=== PATIENT | female | born 1930 | race Caucasian/White ===

== ENCOUNTER 2017-03-22 07:44 | Day surgery (SDC) | payer BC ==
[2017-03-21 11:46] VITALS: BMI 20.7
[2017-03-22] MEDS ORDERED: TROPICAMIDE 1% OPHTH SOLN 15 ML BOTTLE OS SCH (08:00)
[2017-03-22] MEDS ORDERED: GENTAMICIN SULFATE 0.3% OPHTHALMIC (EYE DROPS) 5ML BOTTLE OS SCH (08:00)
[2017-03-22] MEDS ORDERED: PHENYLEPHRINE 2.5% OPHTH SOLN 15 ML BOTTLE OS SCH (08:00)
[2017-03-22] MEDS ORDERED: FLURBIPROFEN 0.03% OPHTH SOLN 2.5 ML BOTTLE OS SCH (08:00)
[2017-03-22] MEDS ORDERED: CYCLOPENTOLATE HCL 1% OPHTH SOLN 2 ML BOTTLE OS SCH (08:00)
[2017-03-22] MEDS: PHENYLEPHRINE 2.5% OPHTH SOLN 15 ML BOTTLE ONE ×5 (08:20→08:40)
[2017-03-22] MEDS: GENTAMICIN SULFATE 0.3% OPHTHALMIC (EYE DROPS) 5ML BOTTLE ONE ×5 (08:20→08:40)
[2017-03-22] MEDS: TROPICAMIDE 1% OPHTH SOLN 15 ML BOTTLE ONE ×5 (08:20→08:40)
[2017-03-22] MEDS: CYCLOPENTOLATE HCL 1% OPHTH SOLN 2 ML BOTTLE ONE ×4 (08:20→08:35)
[2017-03-22] MEDS: FLURBIPROFEN 0.03% OPHTH SOLN 2.5 ML BOTTLE ONE ×5 (08:20→08:40)
[2017-03-22] MEDS ORDERED: MIDAZOLAM HCL 2 MG/2 ML SINGLE DOSE VIAL ONE (09:42)
[2017-03-22] MEDS: ACETAMINOPHEN 325 MG TABLET (FP) PO PRN ×2 (10:38→10:42)
[2017-03-22 14:18] VITALS: TEMP 98.7
[2017-03-22 14:23] VITALS: BP 136/73; PULSE 74
--- NOTE | 2017-03-22 16:27 | OP ---
DATE OF OPERATION: 03/22/2017 PREOPERATIVE DIAGNOSIS: Cataract, left eye. POSTOPERATIVE DIAGNOSIS: Cataract, left eye. PROCEDURE: Cataract extraction via phacoemulsification with insertion of posterior chamber lens implant, left eye. SURGEON: Kishan Schafer MD INVESTMENT DIRECTOR: Danita Siddiqi MD ANESTHESIA: Regional with sedation. COMPLICATIONS: None. SPECIMENS: None. ESTIMATED BLOOD LOSS: Less than 1 mL. DESCRIPTION OF PROCEDURE: The patient was identified in the holding area. After all risks, benefits, and alternatives were explained to the patient, informed consent was obtained. The left eye was marked with a marking pen. Patient then entered the operating room on an eye stretcher. After a formal timeout was performed, a 3-mL injection of equal parts 2% lidocaine with epinephrine and 0.5% Marcaine was given around the left eye. The patient was then prepped and draped in usual sterile fashion. Eyelid speculum was placed onto the eyelids of the left eye. A 15-degree blade was then used to create an inferotemporal paracentesis incision. Viscoelastic was then injected into the anterior chamber. A 2.4-mm keratome blade was then used to make a superotemporal incision. A bent cystotome and Utrata forceps were then used to create a 360-degree, continuous curvilinear capsulorrhexis. Hydrodissection was performed using balanced saline solution on a cannula. Phacoemulsification was introduced to disassemble and remove the nucleus in its entirety. Irrigation/aspiration was then used to remove any remaining cortical material from the eye. The capsular bag was then refilled using Viscoelastic. An Vinod model SN60WF with a power of 17.0 diopters, serial number [id number], was inspected and found to be defect free and injected into the capsular bag. Irrigation/aspiration was then used to remove any remaining viscoelastic from the eye. Intracameral injections of Miochol and Miostat were then given to the anterior chamber. The pupil came down and was round. All wounds were hydrated with balanced saline solution and found to be watertight. The eye had an adequate pressure. The lens was perfectly centered in the capsular bag. There was a red reflex present, and the anterior chamber was deep. Topical antibiotic eye drops and ointment were then administered to the left eye. The eyelid speculum was removed from the left eye. The left eye was patch and shielded. The patient tolerated the procedure well and left the operating room in stable condition to follow up in the eye clinic the following morning at 9:00. KISHAN SCHAFER M.D. [id number]
== END 2017-03-22 11:20 | disposition home or self-care (01) ==
LOC: FASU 07:44
PROVIDERS: ATTEND Ophthalmology
PROC: 08RK3JZ Replacement of Left Lens with Synthetic Substitute, Percutaneous Approach (ICD-10-PCS; principal; 2017-03-22 10:06)
DX: H26.8 Other specified cataract (principal)